=== PATIENT | female | born 1990 | race Hispanic/Latino ===

== ENCOUNTER 2019-03-27 21:40 | Emergency (ER) | payer SELFPAY ==
[2019-03-27] MEDS ORDERED: Ketorolac Tromethamine 30 MG/ML VIAL ONE (22:55)
[2019-03-27 23:10] LABS: Bilirubin Negative (Negative); Blood, Urine Negative (Negative); Clarity CLOUDY (Clear); Glucose, Urine (Dipstick) Negative (Negative); Leukocyte Negative (Negative); Nitrite Negative (Negative); Protein, Urine (Dipstick) Negative (Neg-Trace); Urobilinogen 0.2 mg/dL (0.2-1.0)
[2019-03-27 23:14] LABS: Pregnancy Test - Urine (BHCG) Negative (Negative); Pregu Control Background? CLEAR/WHITE (CLR/WHITE); Pregu Control Bar Appear? YES (CONTROL BAR); Specific Gravity 1.025 (1.002-1.036)
== END 2019-03-27 23:42 | disposition home or self-care (01) ==
LOC: ERS 21:40
DX: M54.5 Low back pain (principal)
CPT/HCPCS: 81003; 81025; 96372; J1885

== ENCOUNTER 2019-12-16 12:42 | Emergency (ER) | payer SELFPAY | END 2019-12-16 15:49 | disposition home or self-care (01) | LOC: ERS 12:42 | DX: J06.9 Acute upper respiratory infection, unspecified (principal) | CPT/HCPCS: 87804; 99283 ==

== ENCOUNTER 2020-09-07 07:54 | Emergency (ER) | payer OTHER, SELFPAY ==
[2020-09-07] MEDS ORDERED: Ketorolac Tromethamine 30 MG/ML VIAL ONE (08:18)
[2020-09-07] MEDS ORDERED: Ondansetron PF 4 MG/2 ML Vial ONE (08:18)
[2020-09-07 08:35] LABS: BHCG - Serum Negative (NEGATIVE); Pregs Control Background? CLEAR/WHITE (CLR/WHITE); Pregs Control Bar Appear? YES (CONTROL BAR)
[2020-09-07 08:38] LABS: #Eosinphils 0.2 thou/uL (0.0-0.7); #Lymphocytes 2.5 thou/uL (1.20-3.40); #Monocytes 0.3 thou/uL (0.11-0.59); #Neutrophils 4.3 thou/uL (1.40-6.50); %Basophils 0.6 % (0.0-1.0); %Eosinophils 2.2 % (0.0-10.0); %Lymphocytes 34.4 % (21.0-51.0); %Monocytes 4.1 % (0.0-10.0); %Neutrophils 58.7 % (42.0-75.0); Hemoglobin 13.6 g/dL (12.0-16.0); Mean Corpuscular HGB CONC 33.4 g/dL (32.0-36.0); Mean Corpuscular Hemoglobin 30.8 pg (27.0-31.0); Mean Corpuscular Volume 92.4 fL (78.0-98.0); Mean Platelet Volume 8.4 fL (7.4-10.4); Platelet Count 232 thou/uL (130-400); White Blood Cell (WBC) Count 7.4 thou/uL (4.8-10.8)
[2020-09-07 08:51] LABS: ALT (SGPT) 34 U/L (8-55); AST (SGOT) 19 U/L (5-34); Albumin 3.8 g/dL (3.5-5.0); Alkaline Phosphatase 95 U/L (40-110); Anion Gap 11 mmol/L (10-20); BUN (Urea Nitrogen) 9 mg/dL (7.0-18.7); Bilirubin, Total 0.4 mg/dL (0.2-1.2); Calc. Creatinine Clearance 0 mL/min (70-130); Calcium 8.3 mg/dL (7.8-10.44); Carbon Dioxide 24 mmol/L (22-29); Chloride 106 mmol/L (98-107); Globulin 3.6 g/dL (2.4-3.5); Glucose 119 mg/dL (70-105); Lipase 24 U/L (8-78); Protein, Total 7.4 g/dL (6.0-8.3); Sodium 137 mmol/L (136-145)
[2020-09-07 08:55] LABS: Bacteria/HPF None Seen HPF (None Seen); Bilirubin Negative (Negative); Blood, Urine 1+ (Negative); Clarity Turbid (Clear); Glucose, Urine (Dipstick) Normal (Negative); Ketone, Urine Negative (Negative); Leukocyte Negative Leu/uL (Negative); Nitrite Negative (Negative); Protein, Urine (Dipstick) 10 mg/dL (Neg-Trace); Specific Gravity, Urine 1.027 (1.002-1.036); Urobilinogen Normal mg/dL (Less than 2); WBC/HPF 0-3 HPF (0-3); pH, Urine 5.5 (5.0-9.0)
[2020-09-07] MEDS ORDERED: Morphine 4 MG/ML VIAL ONE ×2 (09:39→10:41)
--- NOTE | 2020-09-07 10:11 | CT ---
CT ABDOMEN AND PELVIS WITH IV CONTRAST: HISTORY: Negative test. ____ left flank pain. FINDINGS: The lung bases are unremarkable. No calcified gallstones are seen. There is fatty infiltration of t he liver without focal mass or abnormal biliary ductal dilatation. The spleen, pancreas, adrenal gla nds, and kidneys are normal. No free air, free fluid, or lymphadenopathy is seen in the abdomen or p genoveva. The small bowel loops are not abnormally dilated. A normal-appearing appendix is present. A uterus and right ovary are visualized. There is a 6.5 x 5.5 x 6.3 cm left adnexal cystic mass. No acute osseous abnormalities are seen. A tiny nonobstructing right renal calculus is present. IMPRESSION: 1. Fatty liver. 2. Tiny nonobstructing right renal calculus. 3. Left adnexal cystic mass, likely ovarian, measuring 6.5 x 5.5 x 6.3 cm. This should be evaluated with pelvic ultrasound. POS: OFF
--- NOTE | 2020-09-07 12:19 | ULT ---
PELVIC ULTRASOUND: Date: 09/07/2020 HISTORY: Patient with left-sided flank pain. This is follow-up evaluation of a cyst noted on CT examination. FINDINGS: Real-time imaging of the pelvis was obtained transabdominally. This shows a uterus measuring 3.3 x 4. 3 x 7.6 cm in size. Endometrium is in the 7.0 mm range. A small, 2.0 cm, right ovarian cyst is present. A large, 6.6 x 7.1 cm, cyst is seen involving the lef t adnexa. DOPPLER EVALUATION WITH SPECTRAL ANALYSIS: Normal flow is shown to the adnexal regions. Specifically, there does appear to be some flow associat ed with some of the thin rim of ovarian tissue. This is somewhat difficult to assess as the main bulk of the ovary is posterior to the cyst and this area is more difficult to visualize. IMPRESSION: Large left renal cyst. There does appear to be some flow seen along the margins of the cyst. No defin itive signs for torsion, although the main bulk of ovarian tissue is posterior to this cyst and very difficult to visualize by ultrasound. No free fluid or other findings. POS: FLORIN
[2020-09-07] MEDS ORDERED: Iopamidol-370 76% 500 ML 1 ML ONE (13:00)
--- NOTE | 2020-09-07 13:00 | ULT ---
TRANSVAGINAL PELVIC ULTRASOUND: Date: 09/07/2020 HISTORY: Follow-up to transabdominal examination which was suboptimal for visualization of flow to the left ov kurt. FINDINGS: Real-time imaging was obtained transvaginally on this examination. The approximately 2.0 cm right ova osiris cyst is identified. The left ovarian cyst measures approximately 6.5 cm. COLOR DOPPLER EVALUATION WITH SPECTRAL ANALYSIS: On this examination, there is better demonstration of some flow in the region of the ovarian tissue a long the more posterior border of this cyst. Normal flow is shown to the right ovary. IMPRESSION: Large left ovarian cyst. No definitive signs of torsion. POS: FLORIN
--- NOTE | 2020-09-07 18:53 | CON ---
DATE OF CONSULTATION: 09/07/2020 CHIEF COMPLAINT: Abdominal pain and adnexal mass. HISTORY OF PRESENT ILLNESS: The patient is a 29-year-old female who presented to the emergency room with acute onset flank pain this morning around 6 o'clock when she woke up. She said the pain initially was in her left flank and then moved to her front abdomen. The patient reports a history of kidney stones in 3 prior occasions and initially believed that she was having another kidney stone. On evaluation by the emergency room physicians, the patient was noted to have a left adnexal mass, and CANOPY STRINGER was consulted to evaluate for the possibility of ovarian torsion. The patient again at the time of my evaluation confirmed her story, again stating that she woke up with left-sided flank pain, sharp in nature that has since moved to more anterior on that left side. The patient at the time of our evaluation reported the pain was nearly gone, but had received morphine an hour previous. She denies hematuria. She denies any history of pelvic pain or pelvic infections. She reports regular monthly periods, lasting 3 days with one heavy period. She is about 13 days out from the first day of her last period. The patient denies fever, cough, headache, chest pain, or shortness of breath. She had some nausea with the pain, but denies vomiting. Denies diarrhea or constipation. Denies any new rashes, hip problems, knee problems, or muscle weakness. PAST MEDICAL HISTORY: Kidney stones. PAST SURGICAL HISTORY: Negative. SOCIAL HISTORY: Denies drug, alcohol, or tobacco use. ALLERGIES: NO KNOWN DRUG ALLERGIES. MEDICATIONS: None. PHYSICAL EXAMINATION: VITAL SIGNS: Blood pressure 112/80, pulse is 73, respiratory rate 18, saturating 98% on room air. GENERAL: She appears to be in no acute distress. She is alert, oriented, cooperative, and pleasant to interact with. HEENT: Head; normocephalic, atraumatic. LUNGS: Clear to auscultation bilaterally. HEART: Has a regular rate and rhythm. ABDOMEN: Soft. She has some tenderness in the left upper quadrant. No tenderness in the left pelvis or right pelvis. Has some mild tenderness suprapubically. EXTREMITIES: Nontender, nonedematous. LABORATORY DATA: White count of 7.4, hemoglobin 13.6, and hematocrit 40.7. Transvaginal ultrasound shows both ovaries with the left ovary showing a cyst measuring 6.5 cm with flow demonstrated. ASSESSMENT AND PLAN: The patient is a 29-year-old female, with acute onset of flank and abdominal pain this morning, history of kidney stones and incidental finding of a left adnexal mass being a 6-cm cystic structure. I was consulted for evaluation of torsion based on physical findings as the patient has little to no tenderness in her left pelvis. I do not believe this mass was associated with her current pain. By history, the pain is most consistent with her history of kidney stones. The patient could have some early infectious process or GI issue going on. At this time, the patient is comfortable in the room and does not be appear to have any urgent issues that need to be dealt with at this time and will be signing off. Thank you for the consultation. The patient has been counseled to follow up in 2 to 3 months with an outpatient CANOPY STRINGER to make sure that the cystic structure has resolved. Job ID: [id number]
== END 2020-09-07 12:24 | disposition home or self-care (01) ==
LOC: ERS 07:54
DX: N83.202 Unspecified ovarian cyst, left side (principal)
CPT/HCPCS: 74177; 76856; 80053; 81003; 81015; 83690; 84703; 85025; 87086; 93976; 96374; 96375; 96376; J1885; J2270; J2405; Q9967